=== PATIENT | female | born 1950 | race Two or more races ===

== ENCOUNTER → 2021-03-17 | Emergency (ER) | payer OTHER ==
[~2021-03-17] VITALS: Ht 160 cm; Wt 68.9 kg
== END | disposition home or self-care (01) ==
LOC: ER 13:06
DX: M62.48 Contracture of muscle, other site (principal); R25.8 Other abnormal involuntary movements; R20.0 Anesthesia of skin; M62.81 Muscle weakness (generalized); Z03.818 Encounter for observation for suspected exposure to other biological agents ruled out; G93.89 Other specified disorders of brain
CPT/HCPCS: 70552; 70450; 93005; A9575; 70545

== ENCOUNTER 2024-06-22 08:25 | Emergency (ER) | payer OTHER ==
[~2024-06-22] VITALS: Ht 160 cm; Wt 63.0 kg
[2024-06-22] MEDS ORDERED: ZOVIRAX800 MG PO (08:31)
[2024-06-22] MEDS ORDERED: IBRANCE75 M1 PO (08:31)
[2024-06-22] MEDS ORDERED: METFORMIN HCL500 M4 PO (08:31)
[2024-06-22] MEDS ORDERED: KETOROLAC TROMETHAMINE 30 MG VIAL IM ONE (09:15)
[2024-06-22] MEDS ORDERED: TRAMADOL HCL 50 MG TABLET PO ONE (09:15)
[2024-06-22] MEDS ORDERED: ACETAMINOPHEN 500 MG GEL..CAP PO ONE ×2 (09:15→09:22)
[2024-06-22] MEDS ORDERED: GABAPENTIN 300 MG CAPSULE PO ONE (09:15)
[2024-06-22] MEDS ORDERED: KETOROLAC TROMETHAMINE 30 MG VIAL ONE (09:21)
[2024-06-22] MEDS ORDERED: ACETAMINOPHEN WITH CODEINE 1 UDTAB TABLET PO ONE (10:15)
== END 2024-06-22 10:08 | disposition home or self-care (01) ==
LOC: ER 08:25
DX: B02.9 Zoster without complications (principal); E11.9 Type 2 diabetes mellitus without complications; Z79.84 Long term (current) use of oral hypoglycemic drugs
CPT/HCPCS: 96372; 99282; J1885